=== PATIENT | female | born 1950 | race Caucasian/White ===

== ENCOUNTER 2019-03-03 05:29 | Emergency (ER) | payer BC, OTHER ==
[~2019-03-03] VITALS: Ht 177.8 cm; Wt 54.4 kg
[~2019-03-03 05:29] MED LIST: FERROUS SULFAT325 MG ORAL; GABAPENTIN100 MG ORAL; HYDRALAZINE HCL10 MG ORAL; IBUPROFEN600 MG ORAL; KALEXATE15 GM PO; KAYEXALATE SUSP15 GM GT; LISINOPRIL10 MG ORAL; LISINOPRIL40 MG ORAL; METOPROLOL SUCC25 MG ORAL; NEPHROVITE1 TAB ORAL; NEXIUM40 MG ORAL; NORCO 5-325 TA1 EAC1 ORAL; NORCO 5-325 TA1 EACH ORAL; NORVASC5 MG ORAL; PROZAC10 MG ORAL; PROZAC20 MG ORAL; QUETIAPINE FUMA25 MG ORAL; RENAGEL400 MG ORAL; SEROQUEL100 MG ORAL; TRAMADOL HCL50 MG ORAL; WELLBUTRIN100 MG ORAL; [UNRECOGNIZED DRUG - OTHER] PO
--- NOTE | 2019-03-03 06:06 | Emergency Room Report ---
History of Present Illness General Chief Complaint: Dizziness Source: Patient (Garrett Puri MD) Present Illness HPI This is a 68-year-old female with history of high blood pressure. She is on multiple blood pressure medication. She presents with chief complaint of dizziness. Is been ongoing for over 6 months but worsening. She said that when she got up in the middle of the night her blood pressure drops very low and sometimes she would fall. She gets very dizzy and lightheaded. Come in now because it is occurring more often and especially during the day now. No chest pain. No diaphoresis. Blood pressure fluctuates very low and can sometimes get very high. Denies any fever chills. Seen her doctor but said that he blew her off. Denies any other complaint. No chest pain. No recent blood work. (Garrett Puri MD) Allergies: Coded Allergies: PENICILLIN G (Verified Allergy, Unknown, 12/18/09) PENICILLINS (Unverified Allergy, 01/31/13) Patient History Past Medical History: see triage record, old chart reviewed Past Surgical History: other Pertinent Family History: none Social History: Reports: smoking Now: No Immunizations: other Reviewed Nursing Documentation: PMH: Agreed; PSxH: Agreed (Garrett Puri MD) Nursing Documentation-PMH Hx Hypertension: Yes Hx Pacemaker: No Hx Asthma: No Hx COPD: No Hx Diabetes: No Hx Cancer: No Hx Gastrointestinal Problems: Yes - Hep C,chronic gastritis Hx Dialysis: No - kidney failure controlled by med Hx Neurological Problems: No - HEP C Hx Cerebrovascular Accident: No Hx Seizures: No (Garrett Puri MD) Review of Systems Eye: Denies: eye pain, blurred vision ENT: Denies: ear pain, nose congestion, throat swelling Respiratory: Denies: cough, shortness of breath Cardiovascular: Denies: chest pain, palpitations Gastrointestinal: Denies: abdominal pain, diarrhea, nausea, vomiting Musculoskeletal: Denies: back pain, joint pain Skin: Denies: rash Neurological: Reports: dizziness; Denies: headache, numbness Endocrine: Denies: increased thirst, increased urine Hematologic/Lymphatic: Denies: easy bruising All Other Systems: negative except mentioned in HPI (Garrett Puri MD) Physical Exam Vital Signs Date Time Temp Pulse Resp B/P (MAP) Pulse Ox O2 Delivery O2 Flow Rate FiO2 03/03/19 05:34 98.2 76 22 101/68 (79) 94 Room Air Vitals unremarkable Sp02 EP Interpretation: reviewed, normal General Appearance: well appearing, no apparent distress, alert Head: normocephalic, atraumatic Eyes: bilateral eye PERRL, bilateral eye EOMI ENT: hearing grossly normal, normal pharynx Neck: full range of motion, supple, no meningismus Respiratory: chest non-tender, lungs clear, normal breath sounds Cardiovascular #1: regular rate, rhythm, no murmur Gastrointestinal: normal bowel sounds, non tender, no mass, no organomegaly, no bruit, non-distended Musculoskeletal: back normal, gait/station normal, normal range of motion Psychiatric: mood/affect normal (Garrett Puri MD) Medical Decision Making Diagnostic Impression: Primary Impression: Dizziness Additional Impressions: Renal insufficiency UTI (urinary tract infection) Qualified Codes: N30.00 - Acute cystitis without hematuria CKD (chronic kidney disease) Qualified Codes: N18.9 - Chronic kidney disease, unspecified ER Course Presents with dizziness. I suspect that she is having orthostatic hypotension. I reviewed her medication list. She is on very high dose of medication that can drop her blood pressure. She takes doxazosin 3 mg 3 times a day. She is also take trazodone 400 mg at night. She also take Norvasc 10 mg at night. In addition she is also on hydralazine and metoprolol. She is also take pain medication. Will check blood work to make sure everything looks fine and there is no evidence of endorgan damage. We will stop some of her medication. (Garrett Puri MD) ER Course Please see above note. Patient complains of being tired at this time. She received IV hydration. EKG rate 61 sinus rhythm with premature atrial complexes. Labs with elevated BUN and creatinine however in the past these levels were higher. In 2009 she had an elevated BNP. Due to her symptoms TSH and BNP added to labs. Dysuria. Pyuria. Keflex ordered. Laboratory Tests Test 03/03/19 06:10 03/03/19 07:35 White Blood Count 5.8 K/UL (4.8-10.8) Red Blood Count 4.63 M/UL (4.20-5.40) Hemoglobin 12.9 G/DL (12.0-16.0) Hematocrit 41.9 % (37.0-47.0) Mean Corpuscular Volume 91 FL (80-99) Mean Corpuscular Hemoglobin 27.9 PG (27.0-31.0) Mean Corpuscular Hemoglobin Concent 30.8 G/DL (32.0-36.0) L Red Cell Distribution Width 17.7 % (11.6-14.8) H Platelet Count 294 K/UL (150-450) Mean Platelet Volume 4.8 FL (6.5-10.1) L Neutrophils (%) (Auto) 75.2 % (45.0-75.0) H Lymphocytes (%) (Auto) 15.6 % (20.0-45.0) L Monocytes (%) (Auto) 5.9 % (1.0-10.0) Eosinophils (%) (Auto) 2.2 % (0.0-3.0) Basophils (%) (Auto) 1.2 % (0.0-2.0) Sodium Level 143 MMOL/L (136-145) Potassium Level 4.0 MMOL/L (3.5-5.1) Chloride Level 108 MMOL/L (98-107) H Carbon Dioxide Level 21 MMOL/L (21-32) Anion Gap 14 mmol/L (5-15) Blood Urea Nitrogen 30 mg/dL (7-18) H Creatinine 1.8 MG/DL (0.55-1.30) H Estimate Glomerular Filtration Rate 28.0 mL/min (>60) Glucose Level 166 MG/DL (74-106) H Calcium Level 9.0 MG/DL (8.5-10.1) Troponin I 0.000 ng/mL (0.000-0.056) Pro-B-Type Natriuretic Peptide 886 pg/mL (0-125) H Thyroid Stimulating Hormone (TSH) 3.678 uiU/mL (0.358-3.740) Urine Color Yellow Urine Appearance Clear Urine pH 5 (4.5-8.0) Urine Specific [place] 1.020 (1.005-1.035) Urine Protein Negative (NEGATIVE) Urine Glucose (UA) Negative (NEGATIVE) Urine Ketones Negative (NEGATIVE) Urine Blood Negative (NEGATIVE) Urine Nitrite Negative (NEGATIVE) Urine Bilirubin Negative (NEGATIVE) Urine Urobilinogen Normal MG/DL (0.0-1.0) Urine Leukocyte Esterase 2+ (NEGATIVE) H Urine RBC 0 /HPF (0 - 2) Urine WBC 5-10 /HPF (0 - 2) H Urine Squamous Epithelial Cells Few /LPF (NONE/OCC) Urine Bacteria Few /HPF (NONE) (Alejandro Martínez MD) EKG Diagnostic Results Rate: normal Rhythm: NSR ST Segments: no acute changes (Alejandro Martínez MD) Rhythm Strip Diag. Results EP Interpretation: yes Rhythm: NSR, no PVC's, other - PACs (Alejandro Martínez MD) Last Vital Signs Date Time Temp Pulse Resp B/P (MAP) Pulse Ox O2 Delivery O2 Flow Rate FiO2 03/03/19 05:34 98.2 76 22 101/68 (79) 94 Room Air Status: improved (Garrett Puri MD) Last Vital Signs Date Time Temp Pulse Resp B/P (MAP) Pulse Ox O2 Delivery O2 Flow Rate FiO2 03/03/19 08:27 98.1 84 18 143/83 96 Room Air Status: improved (Alejandro Martínez MD) Disposition: HOME, SELF-CARE Condition: Stable Scripts Cephalexin* (KEFLEX*) 500 Mg Capsule 500 MG ORAL EVERY 6 HOURS, #28 CAP Prov: Alejandro Martínez MD 03/03/19 Referrals: [facility],REFERRING (PCP) Patient Instructions: Dizziness Additional Instructions: Stop your doxazosin and amlodipine at night. Check your blood pressure regularly. Keep a log for your doctor. Follow-up with your doctor within a week. Return if symptoms worsen. Garrett Puri MD Mar 03, 2019 06:06 Alejandro Martínez MD Mar 03, 2019 06:56
[2019-03-03 06:20] VITALS: BP 101/68
--- NOTE | 2019-03-03 06:27 | NUR ---
ED Nurse Note: Patient walked in to ER c/o dizziness, balance issues, nausea, SOB x 1week. Patient also reporting burning when urinating and chills, denies fever. AAO x4, VSS at this time, skin is dry warm to touch. Patient states that she is taking too much BP medication every day, there fore c/o generalized weaknes.
[2019-03-03 06:35] LABS: BASOPHILS % (AUTO) 1.2 % (0.0-2.0); EOSINOPHILS % (AUTO) 2.2 % (0.0-3.0); HEMATOCRIT 41.9 % (37.0-47.0); HEMOGLOBIN 12.9 G/DL (12.0-16.0); LYMPHOCYTES % (AUTO) 15.6 % (20.0-45.0); MEAN CORPUSCULAR VOLUME 91 FL (80-99); MONOCYTES % (AUTO) 5.9 % (1.0-10.0); NEUTROPHILS % (AUTO) 75.2 % (45.0-75.0); PLATELET COUNT 294 K/UL (150-450); RED BLOOD COUNT 4.63 M/UL (4.20-5.40); RED CELL DISTRIBUTION WIDTH 17.7 % (11.6-14.8); WHITE BLOOD COUNT 5.8 K/UL (4.8-10.8)
[2019-03-03 06:40] LABS: ANION GAP 14 mmol/L (5-15); BLOOD UREA NITROGEN 30 mg/dL (7-18); CARBON DIOXIDE 21 MMOL/L (21-32); CHLORIDE 108 MMOL/L (98-107); CREATININE 1.8 MG/DL (0.55-1.30); SODIUM 143 MMOL/L (136-145)
--- NOTE | 2019-03-03 07:11 | NUR ---
HAND-OFF: Report given to ANDRE Lozano.
--- NOTE | 2019-03-03 07:41 | NUR ---
ED Nurse Note: Urine collected and sent to lab.
[2019-03-03 07:45] LABS: APPEARANCE,URINE CLEAR; BILIRUBIN, URINE NEGATIVE (NEGATIVE); GLUCOSE, URINE (UA) NEGATIVE (NEGATIVE); KETONES,URINE NEGATIVE (NEGATIVE); LEUKOCYTE ESTERASE ,URINE 2+ (NEGATIVE); NITRITE,URINE NEGATIVE (NEGATIVE); PH,URINE 5 (4.5-8.0); PROTEIN,URINE NEGATIVE (NEGATIVE); UROBILINOGEN,URINE NORMAL MG/DL (0.0-1.0)
[2019-03-03 07:46] LABS: COLOR,URINE YELLOW
[2019-03-03] MEDS ORDERED: CEPHALEXIN500 MG ORAL (08:10)
[2019-03-03] MEDS ORDERED: Cephalexin 500mg cap ORAL ONE (08:15)
[2019-03-03 08:27] VITALS: BP 143/83
--- NOTE | 2019-03-03 08:31 | NUR ---
ER DISCHARGE NOTE: Patient is cleared to be discharged per ERMD, pt is aox4, on room air, with stable vital signs. pt was given dc and prescription instructions, pt was able to verbalize understanding, pt id band and iv site removed without complications. pt is able to ambulate with steady gait. pt took all belongings.
== END 2019-03-03 08:30 | disposition home or self-care (01) ==
LOC: EMR 05:51
DX: I12.9 Hypertensive chronic kidney disease with stage 1 through stage 4 chronic kidney disease, or unspecified chronic kidney disease (principal); N18.9 Chronic kidney disease, unspecified; R42 Dizziness and giddiness; N30.00 Acute cystitis without hematuria; B19.20 Unspecified viral hepatitis C without hepatic coma; F17.200 Nicotine dependence, unspecified, uncomplicated; Z88.0 Allergy status to penicillin
CPT/HCPCS: 36415; 80048; 81001; 83880; 84443; 84484; 85025; 93005; 96360; 99284; J7030